=== PATIENT | female | born 2000 | race American Indian/Alaskan Native ===

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

== ENCOUNTER 2020-10-19 06:44 | Emergency (ER) | payer MEDICAID, OTHER ==
[2020-10-19 06:54] VITALS: BP 154/87
--- NOTE | 2020-10-19 06:59 | Emergency Department Report ---
- General Chief Complaint: Upper Respiratory Infection Stated Complaint: HEAD AND BODYACHES Source: patient Mode of arrival: Ambulatory Limitations: No Limitations - History of Present Illness Initial Comments: Patient is a nulliparous 20-year-old -Togolese female with past medical history of Asthma who presents to the ED with complaint of acute onset persistent frontal sinus pressure and headache, diffuse body aches and pains with photophobia for the last 3 days. Patient states that she has been taking [id number] medication with no relief. Patient denies fever, chills, sore throat, cough, chest pain or shortness of breath, nausea and vomiting, abdominal pain, dysuria, urinary frequency and urgency, fall or neck pain and change in vision. MD Complaint: rhinorrhea, nasal congestion, sinus pain, other (Frontal headache) -: Sudden, days(s) (3) Severity: severe Severity scale (0 -10): 7 Quality: sharp, aching Consistency: constant Improves With: nothing Worsens With: nothing Associated Symptoms: denies other symptoms, myalgias, headache, rhinorrhea, nasal congestion. denies: fever, chills, diaphoresis, sore throat, stiff neck, cough, chest pain, nausea, diarrhea, dysuria, rash, right sweats, weight loss, epistaxis, ear pain Treatments Prior to Arrival: Acetaminophen, "cold medicine" - Related Data Previous Rx's Medication Instructions Recorded Last Taken Type ALBUTEROL NEB's [Proventil 0.083% 2.5 mg IH TID PRN #10 neb 05/14/18 Unknown Rx NEBS] Nebulizer Accessories [Aeroneb Go] 1 each MC DAILY #1 each 05/14/18 Unknown Rx Nebulizer [Aeroneb Go Nebulizer] 1 each MC TID #1 each 05/14/18 Unknown Rx Amoxicillin/Potassium Clav 1 each PO Q12H #20 tablet 10/19/20 Unknown Rx [Augmentin 875-125 Tablet] Butalb/Acetamin/Caff 50-325-40 1 - 2 tab PO Q6HR PRN #15 tab 10/19/20 Unknown Rx [Fioricet 50-325-40] Cetirizine HCl [Zyrtec 10mg tab] 10 mg PO DAILY #30 tablet 10/19/20 Unknown Rx Ibuprofen [Motrin] 800 mg PO Q8HR PRN #30 tablet 10/19/20 Unknown Rx Allergies Allergy/AdvReac Type Severity Reaction Status Date / Time Sulfa (Sulfonamide Allergy Hives Verified 05/14/18 07:50 Antibiotics) ED Review of Systems ROS: Stated complaint: HEAD AND BODYACHES Other details as noted in HPI Constitutional: denies: chills, fever Eyes: denies: eye pain, eye discharge, vision change ENT: congestion, other (frontal and maxillary sinus pressure). denies: ear pain, throat pain Respiratory: cough. denies: shortness of breath, SOB at rest, wheezing Cardiovascular: denies: chest pain, palpitations Endocrine: no symptoms reported Gastrointestinal: denies: abdominal pain, nausea, vomiting, diarrhea Genitourinary: denies: urgency, dysuria, discharge Musculoskeletal: denies: back pain, joint swelling, arthralgia Skin: denies: rash, lesions Neurological: headache. denies: weakness, paresthesias Psychiatric: denies: anxiety, depression Hematological/Lymphatic: denies: easy bleeding, easy bruising ED Past Medical Hx - Past Medical History Hx Asthma: Yes - Social History Smoking Status: Never Smoker - Medications Home Medications: Home Medications Medication Instructions Recorded Confirmed Last Taken Type ALBUTEROL NEB's [Proventil 0.083% 2.5 mg IH TID PRN #10 neb 05/14/18 Unknown Rx NEBS] Nebulizer Accessories [Aeroneb Go] 1 each MC DAILY #1 each 05/14/18 Unknown Rx Nebulizer [Aeroneb Go Nebulizer] 1 each MC TID #1 each 05/14/18 Unknown Rx Amoxicillin/Potassium Clav 1 each PO Q12H #20 tablet 10/19/20 Unknown Rx [Augmentin 875-125 Tablet] Butalb/Acetamin/Caff 50-325-40 1 - 2 tab PO Q6HR PRN #15 tab 10/19/20 Unknown Rx [Fioricet 50-325-40] Cetirizine HCl [Zyrtec 10mg tab] 10 mg PO DAILY #30 tablet 10/19/20 Unknown Rx Ibuprofen [Motrin] 800 mg PO Q8HR PRN #30 tablet 10/19/20 Unknown Rx ED Physical Exam - General Limitations: No Limitations General appearance: alert, in no apparent distress - Head Head exam: Present: atraumatic, normocephalic, normal inspection - Eye Eye exam: Present: normal appearance, PERRL, EOMI Pupils: Present: normal accommodation - ENT ENT exam: Present: normal orophraynx, mucous membranes moist, TM's normal bilaterally, normal external ear exam, other (Palpable frontal and maxillary sinus pressure; grossly congested nasal passages) - Neck Neck exam: Present: normal inspection, full ROM. Absent: tenderness, meningismus - Respiratory Respiratory exam: Present: normal lung sounds bilaterally. Absent: respiratory distress, wheezes, rales, stridor, chest wall tenderness, accessory muscle use, decreased breath sounds, prolonged expiratory - Cardiovascular Cardiovascular Exam: Present: regular rate, normal rhythm, normal heart sounds. Absent: systolic murmur, diastolic murmur, rubs, gallop - GI/Abdominal GI/Abdominal exam: Present: soft, normal bowel sounds. Absent: tenderness, guarding, hyperactive bowel sounds, hypoactive bowel sounds, organomegaly - Extremities Exam Extremities exam: Present: normal inspection, full ROM, normal capillary refill - Back Exam Back exam: Present: normal inspection, full ROM. Absent: tenderness, CVA tenderness (R), CVA tenderness (L), muscle spasm, paraspinal tenderness - Neurological Exam Neurological exam: Present: alert, oriented X3, CN II-XII intact, normal gait, reflexes normal - Psychiatric Psychiatric exam: Present: normal affect, normal mood - Skin Skin exam: Present: warm, dry, intact, normal color. Absent: rash ED Course Vital Signs 10/19/20 06:52 Temperature 98.2 F Pulse Rate 91 H Respiratory 18 Rate Blood Pressure 154/87 O2 Sat by Pulse 98 Oximetry ED Medical Decision Making - Medical Decision Making This is a nulliparous 20-year-old -Togol[place] female with no past medical history who presents to the ED with complaint of acute onset persistent frontal sinus pressure and headache, diffuse body aches and pains with photophobia for the last 3 days. Patient states that she has been taking [id number] medication with no relief. In the ED patient is alert and oriented x 3 and is in no acute distress. Based on history and physical exam findings, patient was discharged home on medications and advised to follow up with her Primary care Physician in 7-10 days for reevaluation. Patient was also advised to return to the ED immediately if symptoms get worse. - Differential Diagnosis Sinusitis; URI; Bronchitis; Pneumonia Critical care attestation.: If time is entered above; I have spent that time in minutes in the direct care of this critically ill patient, excluding procedure time. ED Disposition Clinical Impression: Acute non-recurrent frontal sinusitis, Acute upper respiratory infection, Sinus headache Disposition: TO HOME OR SELFCARE Is pt being admited?: No Does the pt Need Aspirin: No Condition: Stable Instructions: Sinusitis, Adult, [id number], Upper Respiratory Infection, Adult, [id number] Additional Instructions: Based on your symptoms and physical exam findings, you likely to be having acute frontal sinusitis. Take medication with food, drink plenty of fluids and follow-up with your primary care physician in 5 to 7 days for reevaluation. Return to the ED immediately if symptoms get worse. Prescriptions: Amoxicillin/Potassium Clav [Augmentin 875-125 Tablet] 1 each PO Q12H #20 tablet Butalb/Acetamin/Caff 50-325-40 [Fioricet 50-325-40] 1 - 2 tab PO Q6HR PRN #15 tab PRN Reason: Headache Ibuprofen [Motrin] 800 mg PO Q8HR PRN #30 tablet PRN Reason: Pain , Severe (7-10) Cetirizine HCl [Zyrtec 10mg tab] 10 mg PO DAILY #30 tablet Referrals: [facility] [Provider Group] - 3-5 Days Forms: Work/School Release Form(ED) Time of Disposition: 06:57 Print Language: YI
== END 2020-10-19 07:21 | disposition home or self-care (01) ==
LOC: ED 06:44
DX: J01.10 Acute frontal sinusitis, unspecified (principal); J06.9 Acute upper respiratory infection, unspecified; R51.9 Headache, unspecified; J45.909 Unspecified asthma, uncomplicated; Z79.1 Long term (current) use of non-steroidal anti-inflammatories (NSAID); Z79.899 Other long term (current) drug therapy; Z88.2 Allergy status to sulfonamides
CPT/HCPCS: 99282

== ENCOUNTER 2022-03-30 03:00 | Emergency (ER) | payer SELFPAY ==
[2022-03-30 03:22] VITALS: BP 153/93
[2022-03-30] MEDS ORDERED: IBUPROFEN 600 MG TAB PO ONE (03:24)
[2022-03-30 04:20] LABS: Basophils # (Auto) 0.1 K/mm3 (0.0-0.1); Basophils % (Auto) 0.6 % (0.0-1.8); Eosinophils # (Auto) 0.3 K/mm3 (0.0-0.4); Eosinophils % (Auto) 3.3 % (0.0-4.3); Hematocrit 36.3 % (30.3-42.9); Hemoglobin 12.1 gm/dl (10.1-14.3); Lymphocytes # (Auto) 4.3 K/mm3 (1.2-5.4); Lymphocytes % (Auto) 47.6 % (13.4-35.0); Mean Corpuscular HGB Conc 33 % (30-34); Mean Corpuscular Volume 71 fl (79-97); Monocytes # (Auto) 0.8 K/mm3 (0.0-0.8); Platelet Count 419 K/mm3 (140-440); Red Cell Distribution Width 16.3 % (13.2-15.2)
[2022-03-30 04:32] LABS: Alanine Aminotransferase 26 units/L (7-56); Albumin 4.1 g/dL (3.9-5); Blood Urea Nitrogen 10 mg/dL (7-17); Calcium 9.7 mg/dL (8.4-10.2); Hemolysis Index 0
[2022-03-30 04:35] LABS: BUN/Creatinine Ratio 33
[2022-03-30 05:31] LABS: Bacteria,Urine 4+ /HPF (Negative); Mucus,Urine FEW /HPF
[2022-03-30 05:32] LABS: Color,Urine Yellow (Yellow)
== END 2022-03-30 09:52 | disposition left against medical advice (07) ==
LOC: ED 03:00
DX: R10.9 Unspecified abdominal pain (principal); Z53.21 Procedure and treatment not carried out due to patient leaving prior to being seen by health care provider
CPT/HCPCS: 36415; 80053; 81001; 84703; 85025